=== PATIENT | male | born 1990 | race Caucasian/White ===

== ENCOUNTER 2016-05-26 12:23 | Day surgery (SDC) | payer MEDICAID ==
[~2016-05-26] VITALS: Ht 188 cm; Wt 54.5 kg
[2016-05-26] VITALS (7 sets, daily range): BP systolic 109–131; BP diastolic 66–85; PULSE 60–71; TEMP 97.8–98.1
[~2016-05-26 12:23] MED LIST: ATIVAN 1MG T1 MG/TAB PO; BACLOFEN10 MG PO; CEPHALEXIN500 M1 PO; CYMBALTA60 MG PO; DITROPAN 5MG TAB5 MG PO; DITROPAN XL15 MG PO; FLEXERIL10 MG PO; GABAPENTIN400 M1 PO; HYDROCODONE BIT1 TA3 PO; LIORESAL 1010 MG/TAB PO; LIORESAL I500 MCG/ML; LYRICA 100MG C100 M1 PO; NEURONTIN300 MG/CAP PO; PAXIL 10MG10 MG PO; PERCOCET 325 MG1 TAB PO; PRILOSEC 20MG20 MG PO; PROTONIX20 MG PO; SENOKOT TABLET1 EA PO; ZANAFLEX 4MG TAB4 MG PO; ZANAFLEX2 M1 PO
[2016-05-26] MEDS ORDERED: LIORESAL20 MG PO (13:22)
[2016-05-26] MEDS ORDERED: DITROPAN XL10 MG PO (13:24)
[2016-05-26] MEDS ORDERED: CYMBALTA 60MG60 MG PO (13:25)
[2016-05-26] MEDS ORDERED: CYMBALTA 30MG30 MG PO (13:26)
== END 2016-05-26 17:20 | disposition home or self-care (01) ==
LOC: SDCO 12:23
DX: N31.2 Flaccid neuropathic bladder, not elsewhere classified (principal); Z87.440 Personal history of urinary (tract) infections; Z87.442 Personal history of urinary calculi; G82.50 Quadriplegia, unspecified; Z79.899 Other long term (current) drug therapy; F17.200 Nicotine dependence, unspecified, uncomplicated
CPT/HCPCS: J0690; J1100; J2405; J2704; J3010; J7120

== ENCOUNTER 2017-04-21 09:22 | Day surgery (SDC) | payer BC, MEDICAID ==
[~2017-04-21] VITALS: Ht 190.5 cm; Wt 56.8 kg
[~2017-04-21 09:22] MED LIST changes: +CYMBALTA 30MG30 MG PO; +CYMBALTA 60MG60 MG PO; +DITROPAN XL10 MG PO; +LIORESAL20 MG PO
[2017-04-21 10:14] VITALS: BP 125/80; PULSE 73; TEMP 97.1
[2017-04-21 13:15] VITALS: BP 117/67; PULSE 97
[2017-04-21 13:30] VITALS: BP 111/69; PULSE 100
[2017-04-21 13:45] VITALS: BP 147/81; PULSE 96
[2017-04-21 14:00] VITALS: BP 107/59; PULSE 88
[2017-04-21 14:57] VITALS: BP 123/77; PULSE 80; TEMP 99.5
== END 2017-04-21 14:25 | disposition home or self-care (01) ==
LOC: SDCO 09:22
DX: N31.2 Flaccid neuropathic bladder, not elsewhere classified (principal); R33.9 Retention of urine, unspecified; N30.00 Acute cystitis without hematuria; F17.200 Nicotine dependence, unspecified, uncomplicated; Z90.49 Acquired absence of other specified parts of digestive tract; Z87.442 Personal history of urinary calculi; Z87.440 Personal history of urinary (tract) infections; Z86.718 Personal history of other venous thrombosis and embolism; Z80.42 Family history of malignant neoplasm of prostate; Z82.49 Family history of ischemic heart disease and other diseases of the circulatory system; Z83.3 Family history of diabetes mellitus
CPT/HCPCS: C1769; J0690; J2270; J2704; J3010; J7120

== ENCOUNTER 2017-11-01 13:59 | Day surgery (SDC) | payer BC, MEDICAID ==
[2017-11-01] VITALS (10 sets, daily range): BP systolic 91–139; BP diastolic 44–88; PULSE 52–88; TEMP 98.2–98.6
[~2017-11-01] VITALS: Ht 188 cm; Wt 54.5 kg
[2017-11-02 04:01] VITALS: BP 100/47; PULSE 79; TEMP 97.7
[2017-11-02 07:46] VITALS: BP 121/57; PULSE 81
== END 2017-11-02 10:30 | disposition home or self-care (01) ==
LOC: SDCO 13:59 → SURG 18:50 → SDCO 11-02 10:30
DX: N20.0 Calculus of kidney (principal); N21.0 Calculus in bladder; N31.9 Neuromuscular dysfunction of bladder, unspecified; G82.50 Quadriplegia, unspecified; S14.105S Unspecified injury at C5 level of cervical spinal cord, sequela; Z86.718 Personal history of other venous thrombosis and embolism; F17.210 Nicotine dependence, cigarettes, uncomplicated
CPT/HCPCS: OP; A9284; C1769; C1894; J0360; J0690; J1170; J2300; J2405; J2704; J3010; J7120; Q9967

== ENCOUNTER 2017-12-06 13:14 | Day surgery (SDC) | payer BC, MEDICAID ==
[2017-12-06] VITALS (8 sets, daily range): BP systolic 99–118; BP diastolic 48–75; PULSE 65–85; TEMP 97.5–98.6
[~2017-12-06] VITALS: Ht 188 cm; Wt 55.0 kg
[~2017-12-06 13:14] MED LIST changes: -DITROPAN XL10 MG PO
[2017-12-06 14:18] LABS: BASO # 0.1 (0.0-0.2); BASO % 0.6 % (0.0-2.0); EOS # 0.6 (0.0-0.7); EOS % 5.2 % (0-4.0); GRAN # 6.1 (1.4-6.5); GRAN % 52.8 % (42.2-75.2); LYMPH # 3.7 (1.2-3.4); LYMPH % 32.3 % (20.0-51.0); MEAN CELL VOLUME 95 fl (80.0-100.0); MEAN CORPUSCULAR HEMOGLOBIN 32 pg (27.0-31.0); MEAN CORPUSCULAR HGB CONC 33 g/dl (33.0-37.0); MONO % 8.9 % (1.7-9.3); PLATELET COUNT 281 K/mm3 (130-400); RED BLOOD COUNT 3.81 M/mm3 (4.20-5.60); REDCELL DISTRIBUTION WIDTH-CV 14.4 % (11.5-14.5)
[2017-12-06] MEDS ORDERED: AMOXICILLIN 8751 TAB PO (14:29)
[2017-12-06 14:30] LABS: CREATININE, serum 0.31 mg/dL (0.66-1.25); POTASSIUM 4.5 mmol/L (3.4-5.0)
[2017-12-07 01:03] VITALS: BP 104/61; PULSE 88; TEMP 98.7
[2017-12-07 04:10] VITALS: BP 90/50; PULSE 81; TEMP 98.5
[2017-12-07 07:47] VITALS: BP 88/45; PULSE 91; TEMP 98.1
[2017-12-07 12:15] VITALS: BP 101/57; PULSE 91
[2017-12-07 12:59] VITALS: BP 102/59; PULSE 93
== END 2017-12-07 14:15 | disposition home or self-care (01) ==
LOC: SDCO 13:14 → SURG 17:50 → SDCO 12-07 14:15
PROVIDERS: Urology
DX: N20.0 Calculus of kidney (principal); N31.9 Neuromuscular dysfunction of bladder, unspecified; G82.52 Quadriplegia, C1-C4 incomplete; S14.154S Other incomplete lesion at C4 level of cervical spinal cord, sequela; V89.2XXS Person injured in unspecified motor-vehicle accident, traffic, sequela; F17.210 Nicotine dependence, cigarettes, uncomplicated; Z87.442 Personal history of urinary calculi; Z79.899 Other long term (current) drug therapy
CPT/HCPCS: OP; C1769; J0690; J2405; J2704; J3010; J7030; Q9967

== ENCOUNTER 2018-06-06 14:06 | Day surgery (SDC) | payer BC, MEDICAID ==
[~2018-06-06] VITALS: Ht 188 cm; Wt 68.0 kg
[2018-06-06] VITALS (9 sets, daily range): BP systolic 92–140; BP diastolic 50–85; PULSE 60–94; TEMP 98.1–98.8
[~2018-06-06 14:06] MED LIST changes: +AMOXICILLIN 8751 TAB PO
--- NOTE | 2018-06-06 18:30 | NUR ---
PATIENT ARRIVED TO ROOM 348 VIA BED FROM PACU. POST-OP VSS. 02 AT 4L VIA NASAL CANNULA. SUPRAPUBIC CATHETER TO DEPENDENT DRAINAGE WITH SMALL AMOUNTS OF PINK COLORED URINE WITH SEDIMENT PRESENT. IV FLUIDS INFUSING TO LEFT WRIST VIA GRAVITY TUBING. CALL LIGHT WITHIN REACH. PATIENT DENIES ANY NEEDS AT THIS TIME.
--- NOTE | 2018-06-06 19:57 | NUR ---
REPORT GIVEN TO PATRICIA LOERA.
--- NOTE | 2018-06-06 20:15 | NUR ---
Patient asking for oral medications he is behind on due to surgery. Patient is alert and oriented x2. Has Oxygen on at 4l/nc at this time due to post op. Patient is a quadraplegic. IVF saline locked to left forearm. Patients dad brings food from outside for dinner. Lung sounds diminished bilaterally. Abdomen flat, bowel sounds active. Has suprapubic catheter with bloody urine. Catheter care and andres care given at this time. Placed SCD's on patient lower extremities. Takes HS meds at this time including Percocet 10/325mg and Ativan 1mg po without problem. Augmentin dose also given at this time.
[2018-06-07 00:24] VITALS: BP 121/85; PULSE 82; TEMP 98.6
--- NOTE | 2018-06-07 00:26 | NUR ---
AT 2044 RN OF PT NOTIFIED RT THAT PT WEARS 2LPM AT HOME. THERE IS NO 02 ORDER BUT NOTE IS BEING PUT IN. PT ISN'T SEEN BY A HOSPITALIST AND THEREFORE NO ORDER CAN BE PUT IN FOR 02 UNTIL PTS DOCTOR COMES BACK IN THE DAY. NO DISTRESS IS NOTED AND PT SATS WAS 93% WITH A HR OF 94. THIS WAS ON 06/06/18 AND WILL CONTINUE TO ASSESS LIKE ALL O2 PTS WITH OR WITHOUT ORDER.
--- NOTE | 2018-06-07 02:15 | NUR ---
Patient given repeat of HS meds at this time, due to being off his schedule and needing to keep muscle spasms and ridgity minimal. Takes Ativan 2mg at this time for anxiety. Emptied 550cc of bloody urine from suprapubic catheter at this time. Father remains at bedside to assist with mobility and repositioning as patient is a quadraplegic.
--- NOTE | 2018-06-07 07:15 | NUR ---
Patient and father resting quietly in room Suprapubic draining well, red tinged urine noted.
--- NOTE | 2018-06-07 08:00 | NUR ---
PATIENT IS DROWSY AND RESTING IN BED THIS MORNING. PATIENT AROUSES EASILY TO NAME AND TOUCH. PATIENT IS A&O. VSS. BOWEL SOUNDS ACTIVE ALL FOUR QUADRANTS. PATIENT TOLERATING FOOD & LIQUIDS WITHOUT ANY COMPLAINTS OF N/V. POSITIVE PEDAL PULSES EQUAL BILATERALLY. SCD'S TO BLE. PARALYSIS WITH BILATERALLY UPPER EXTREMITY CONTRACTURES NOTED. ALL LUNG KELSEY DIMINISHED UPON AUSCULTATION. LEFT WRIST TO INT. SUPRAPUBIC CATHETER TO DEPENDENT DRAINAGE WITH MODERATE AMOUNTS OF DARK RED URINE WITH SAND PRESENT IN RASMUSSEN BAG. CALL LIGHT WITHIN REACH. FATHER PRESENT AT THE BEDSIDE. BREAKFAST TRAY ORDERED. NO OTHER NEEDS AT THIS TIME.
[2018-06-07 08:07] VITALS: BP 99/55; PULSE 89; TEMP 97.3
--- NOTE | 2018-06-07 10:26 | NUR ---
First visit from the airframe technical officer. No needs right now.
[2018-06-07 11:36] VITALS: BP 129/78; PULSE 103; TEMP 97.8
--- NOTE | 2018-06-07 13:30 | NUR ---
PATIENT'S LEFT WRIST INT DC'D PER PENDING DISCHARGE. PATIENT TOLERATED WELL. DISCHARGE INSTRUCTIONS REVIEWED WITH PATIENT AND FATHER. ALL QUESTIONS ANSWERED. PATIENT PERSONAL BELONGINGS GATHERED. PATIENT TAKEN TO PERSONAL VEHICLE VIA PERSONAL WHEELCHAIR. PATIENT DISCHARGED.
== END 2018-06-07 13:30 | disposition home or self-care (01) ==
LOC: SDCO 14:06 → SURG 18:35 → SDCO 06-07 13:30
DX: N21.0 Calculus in bladder (principal); N20.0 Calculus of kidney; N31.2 Flaccid neuropathic bladder, not elsewhere classified; R33.9 Retention of urine, unspecified; Z87.442 Personal history of urinary calculi; N30.20 Other chronic cystitis without hematuria; Z79.899 Other long term (current) drug therapy; R56.9 Unspecified convulsions; G89.29 Other chronic pain; G82.50 Quadriplegia, unspecified; S14.104S Unspecified injury at C4 level of cervical spinal cord, sequela; X58.XXXS Exposure to other specified factors, sequela; Z87.09 Personal history of other diseases of the respiratory system; F17.210 Nicotine dependence, cigarettes, uncomplicated; Z86.718 Personal history of other venous thrombosis and embolism; Z91.040 Latex allergy status; Z90.81 Acquired absence of spleen; Z79.2 Long term (current) use of antibiotics; Z96.0 Presence of urogenital implants
CPT/HCPCS: C1769; J0690; J2405; J2704; J3010; J7120

== ENCOUNTER 2018-10-03 12:09 | Day surgery (SDC) | payer BC, MEDICAID ==
[~2018-10-03] VITALS: Ht 188 cm; Wt 52.3 kg
[2018-10-03] VITALS (11 sets, daily range): BP systolic 95–119; BP diastolic 46–82; PULSE 73–95; TEMP 97.8–99.1
--- NOTE | 2018-10-03 13:05 | NUR ---
Mor MANAGER PRINTING was notified of the patient's increased anxiety and request for medication at this time. An order for versed was obtained at this time. Will continue to monitor the patient.
[2018-10-03] MEDS ORDERED: ROXICODONE 55 MG/TAB PO (13:25)
[2018-10-03] MEDS ORDERED: LIORESAL 1010 MG/TAB PO (13:26)
[2018-10-03] MEDS ORDERED: CYMBALTA 30MG30 MG PO (13:26)
[2018-10-03] MEDS ORDERED: PRILOSEC 20MG20 MG PO (13:27)
[2018-10-03] MEDS ORDERED: AMOXICILLIN 8751 TAB PO (13:28)
--- NOTE | 2018-10-03 15:50 | NUR ---
returned to room per bed from PACU, awake and alert but very sleepy, IV infusing per dial-a-flow at 100ml/hr, O2 on at 2L/NC and O2 sat 94%, he falls asleep easily and has short periods of apnea but arouses self,
--- NOTE | 2018-10-03 16:15 | NUR ---
remains very sleepy and was hard to arouse, father at bedside and head of bed elevated and the patient awakens easier then, is oriented times 3, full assessment completed, see interventions for further info, suprapubic cath draining very light clear peach colored urine,
--- NOTE | 2018-10-03 16:30 | NUR ---
continues to sleep
--- NOTE | 2018-10-03 17:00 | NUR ---
is no starting to wake up and talk when nurse enters room
--- NOTE | 2018-10-03 17:30 | NUR ---
is awake now and talking with his dad, is now c/o pain to his legs as he has at home and requesting pain pill and ativan, medicated with roxicodone 5mg and ativan 1mg po, other evening meds given and takes without difficulty, when asked if he was hungry he declined at this time
--- NOTE | 2018-10-03 18:30 | NUR ---
appears to be sleeping but arouses easily, denies needs
--- NOTE | 2018-10-03 18:59 | NUR ---
bedside shift report given to PATRICIA Saeed
--- NOTE | 2018-10-03 21:35 | NUR ---
Patient awakened for HS meds. Takes scheduled and PRN doses of ATivan and Oxycodone. Suprapubic catheter draining well, site is clear. Has SCD's on bilateral lower legs. Dad at bedside.
--- NOTE | 2018-10-04 01:30 | NUR ---
Repositioned to right side, pillows placed where patient is most comfortable. IV site to left hand SL'd.
[2018-10-04 03:00] VITALS: BP 123/82; PULSE 111; TEMP 98.2
--- NOTE | 2018-10-04 06:51 | NUR ---
appears to be sleeping, bedside shift report received from PATRICIA Saeed
[2018-10-04 07:25] VITALS: BP 121/81; PULSE 82; TEMP 97.8
--- NOTE | 2018-10-04 07:25 | NUR ---
resting in bed, full assessment completed, see interventions for further info, c/o pain and medicated with roxicodone 5mg and ativan 1mg per his request, father will assist him with ordering breakfast, Dr Issa in to see patient, will plan discharge later
--- NOTE | 2018-10-04 09:55 | NUR ---
discharge instructions given to patient and his dad, verbalizes understanding, discharged per patient's electric WC with father
== END 2018-10-04 09:55 | disposition home or self-care (01) ==
LOC: SDCO 12:09 → SURG 15:55 → SDCO 10-04 09:55
DX: N21.0 Calculus in bladder (principal); N20.0 Calculus of kidney; Z87.442 Personal history of urinary calculi; N31.9 Neuromuscular dysfunction of bladder, unspecified; G82.50 Quadriplegia, unspecified; S14.104S Unspecified injury at C4 level of cervical spinal cord, sequela; V89.2XXS Person injured in unspecified motor-vehicle accident, traffic, sequela; Z98.1 Arthrodesis status; Z90.81 Acquired absence of spleen; Z79.899 Other long term (current) drug therapy; Z88.2 Allergy status to sulfonamides; Z91.040 Latex allergy status; F17.210 Nicotine dependence, cigarettes, uncomplicated; Z99.3 Dependence on wheelchair; G89.29 Other chronic pain; R56.9 Unspecified convulsions
CPT/HCPCS: OP; C1769; J0690; J1100; J1885; J2250; J2405; J2704; J3010; J7120

== ENCOUNTER 2019-06-05 11:18 | Day surgery (SDC) | payer BC, MEDICAID ==
[~2019-06-05] VITALS: Ht 188 cm; Wt 54.5 kg
[2019-06-05] VITALS (10 sets, daily range): BP systolic 91–152; BP diastolic 51–80; PULSE 65–97; TEMP 97.4–98.5
[~2019-06-05 11:18] MED LIST changes: +ROXICODONE 55 MG/TAB PO
[2019-06-05] MEDS ORDERED: DITROPAN XL10 MG PO (12:40)
[2019-06-05] MEDS ORDERED: OXYCONTIN 20MG20 MG PO (12:41)
[2019-06-05] MEDS ORDERED: AMOXICILLIN/CLA1 TA1 PO (12:45)
--- NOTE | 2019-06-05 16:15 | NUR ---
PT to surgical unit from cystoscopy procedure. pt is awake and alert, p,w,d. pt is a quadriplegic with some motor control of upper chest and arms. Pt is able to drive his own wheelchair. Pt arrives with suprapubic catheter in place draining initially jodi colored urine. lung sounds are rhonchorous, and pt reports mild sob, he is able to cough with help. heart tones loud, no murmur. pt c/o bilat leg pain that is chronic, he states they ache and sting, pain is rated 8/10. skin integrity intact. 20g iv catheter present to left hand, infusing LR tko.
--- NOTE | 2019-06-05 23:17 | NUR ---
Patient doing well tonight. alert and oriented. suprapubic catheter to dependent drainage with dark jodi urine output. c/o pain to bilateral lower extremities described as chronic pins and needles. additional c/o headache. given scheduled oxycontin and muscle relaxants. patient teaching done regarding need for additional medications if needed. rhonchi noted in bilateral lower lobes of lungs. Maegan called for fluid orders due to patient not having good oral intake and urine still dark, D5 1/2 NS now infusing to L hand IV at 100 ml/hr. prn ativan requested by patient to sleep. Ate mcdonalds this evening. no further needs at this time. will continue to monitor.
[2019-06-06 04:25] VITALS: BP 126/80; PULSE 75; TEMP 97.9
--- NOTE | 2019-06-06 04:37 | NUR ---
Patient called c/o feeling of fullness in bladder. monique bag full, and emptied 1350 ml dark jodi urine. monique irrigated for additioal measures with 300 ml of irrigation solution, 300 ml returned of pale yellow urine. no further needs at this time. will continue to monitor.
[2019-06-06 07:41] VITALS: BP 126/71; PULSE 91; TEMP 98.9
--- NOTE | 2019-06-06 08:00 | NUR ---
Patient in bed resting. Alert and oriented. Father at bedside. Suprapubic catheter with clear yellow urine in bag. Denies pain at this time. Assessment complete. IV fluids infusing to left hand. Encouraged increased fluid intake. Denies further needs at this time.
--- NOTE | 2019-06-06 10:00 | NUR ---
SERAFIN met with patient and the patient's father, Dionicio to complete initial assessment. The patient lives in [place] with his parents and extended family. The patient uses a wheelchair and a machine that assist with coughing and requires family assistance with ADLs. The patient requires 2L of oxygen and receives supplies from [employer]. The patient does not have advanced directives in the EMR. DPOA-HC form provided at patient's request. The patient plans to return upon discharge with continuing family support. There are no additional needs at this time.
[2019-06-06 11:16] VITALS: BP 142/99; PULSE 70; TEMP 98.8
--- NOTE | 2019-06-06 11:27 | NUR ---
Initial visit; Patient thanked [employer] for looking in on him and offering spiritual care.
--- NOTE | 2019-06-06 12:20 | NUR ---
Discharge education provided to patient and father. All questions answered. Patient transfered to wheelchair with assistance. INT to left hand discontinued, catheter tip intact. Denies pain or further needs at this time. Patient out with father and surgical staff.
== END 2019-06-06 12:20 | disposition home or self-care (01) ==
LOC: SDCO 11:18 → SURG 15:59 → SDCO 06-06 12:20
DX: N20.0 Calculus of kidney (principal); N21.0 Calculus in bladder; N39.0 Urinary tract infection, site not specified; G40.909 Epilepsy, unspecified, not intractable, without status epilepticus; Z86.711 Personal history of pulmonary embolism; Z90.49 Acquired absence of other specified parts of digestive tract; Z91.040 Latex allergy status; Z88.2 Allergy status to sulfonamides; Z88.8 Allergy status to other drugs, medicaments and biological substances; Z83.3 Family history of diabetes mellitus; Z82.49 Family history of ischemic heart disease and other diseases of the circulatory system; Z80.42 Family history of malignant neoplasm of prostate; Z87.891 Personal history of nicotine dependence
CPT/HCPCS: OP; C1769; J2250; J2405; J2704; Q9967

== ENCOUNTER 2019-12-04 11:53 | Day surgery (SDC) | payer BC, MEDICAID ==
[~2019-12-04] VITALS: Ht 188 cm; Wt 54.5 kg
[~2019-12-04 11:53] MED LIST changes: +AMOXICILLIN/CLA1 TA1 PO; +DITROPAN XL10 MG PO; +LIORESAL I2000 MCG/1; +MORPHINE 10 MG/ML; +OXYCONTIN15 MG PO
[2019-12-04 12:42] VITALS: BP 107/76; PULSE 65; TEMP 98.4
[2019-12-04 14:40] VITALS: BP 98/52; PULSE 92; TEMP 98.8
--- NOTE | 2019-12-04 14:40 | NUR ---
The patient arrived back to [facility] from the recovery room at this time and appears to be resting comfortably on the cart at this time. The patient denies any pain or nausea at this time. Post operative vital signs were started at this time. The patient agrees to try some ice water at this time. The patient's father is at his bedside at this time. Call light is within reach. Will continue to monitor the patient.
[2019-12-04 14:55] VITALS: BP 103/51; PULSE 95
--- NOTE | 2019-12-04 14:55 | NUR ---
The patient appears to be tolerating the water well. Vital signs appear stable. Call light remains within reach. Will continue to monitor the patient.
[2019-12-04 15:10] VITALS: BP 108/57; PULSE 78
--- NOTE | 2019-12-04 15:10 | NUR ---
The patient appears to be resting comfortably on the cart at this time. The patient appears to be tolerating the water well. Vital signs appear stable. Call light remains within reach. The patient's father remains at his bedside. Will continue to monitor the patient.
[2019-12-04 15:25] VITALS: BP 110/55; PULSE 84
--- NOTE | 2019-12-04 15:25 | NUR ---
The patient agrees to try some cranberry juice at this time. The patient denies wanting anything to eat at this time. Call light remains within reach. Will continue to monitor the patient.
[2019-12-04 15:55] VITALS: BP 104/57; PULSE 103
--- NOTE | 2019-12-04 15:55 | NUR ---
The patient verbalizes a desire to be discharged home. Discharge instructions were reviewed with the patient and his father at this time. They both verbalized understanding at this time. The patient's father asked if a prescription for an antibiotic would be given and the said she would call the doctor the clarify. The patient's IV was removed and a pressure dressing was applied to the site. The patient's father is going to assist him to get dressed and then back in his wheelchair. Will continue to monitor the patient.
--- NOTE | 2019-12-04 16:05 | NUR ---
Dr. Issa was called to clarify if the patient needed an antibiotic upon discharge and he said the office will call one in to the patient's pharmacy.
--- NOTE | 2019-12-04 16:15 | NUR ---
The patient was escorted out his personal wheelchair by PATRICIA Ledesma at this time. The patient's belongings and discharge paperwork were sent with him. The patient's father is present to drive him home.
== END 2019-12-04 16:15 | disposition home or self-care (01) ==
LOC: SDCO 11:53
DX: N21.0 Calculus in bladder (principal); N20.0 Calculus of kidney; N31.2 Flaccid neuropathic bladder, not elsewhere classified; R33.9 Retention of urine, unspecified; F17.210 Nicotine dependence, cigarettes, uncomplicated; R56.9 Unspecified convulsions; G82.50 Quadriplegia, unspecified; R29.2 Abnormal reflex; Z79.899 Other long term (current) drug therapy; Z86.718 Personal history of other venous thrombosis and embolism; Z90.81 Acquired absence of spleen; Z98.1 Arthrodesis status; Z88.2 Allergy status to sulfonamides; Z97.8 Presence of other specified devices
CPT/HCPCS: C1769; J0360; J0690; J2704; J3010; J7120